=== PATIENT | female | born 2000 | race Two or more races ===

== ENCOUNTER 2018-07-19 13:36 | Day surgery (SDC) | payer OTHER ==
[~2018-07-19] VITALS: Ht 157.5 cm; Wt 52.2 kg
[2018-07-19] VITALS (8 sets, daily range): BP systolic 107–127; BP diastolic 47–65
--- NOTE | 2018-07-19 10:00 | Pre-Procedure Note/Attestation ---
Pre-Procedure Note/Attestation Complete Prior to Procedure Planned Procedure: right Procedure Narrative: wrist orif Indications for Procedure Pre-Operative Diagnosis: right wrist fracture Attestation I attest that I discussed the nature of the procedure; its benefits; risks and complications; and alternatives (and the risks and benefits of such alternatives ), prior to the procedure, with the patient (or the patient's legal floor representative). I attest that, if there was a reasonable possibility of needing a blood transfusion, the patient (or the patient's legal floor representative) was given the [facility] standardized written summary, pursuant to the Alexi Mayito Blood Safety Act ([place] Health and Safety Code # 1645, as amended). I attest that I re-evaluated the patient just prior to the surgery and that there has been no change in the patient's H&P, except as documented below: Jian Fulton MD Jul 19, 2018 10:00
--- NOTE | 2018-07-19 10:00 | Operative Note - PDOC ---
Operative Note Operative Note Pre-op Diagnosis: right wrist fracture Procedure: see op report Post-op Diagnosis: same as pre-op plus Operative Findings: consistent w/pre-op dx studies Anesthesia: regional Specimen: none Complications: none Condition: stable Estimated Blood Loss: none Implant(s) used?: Yes Jian Fulton MD Jul 19, 2018 10:00
[~2018-07-19 13:36] MED LIST: D5 1/2NS 1,000 ML IV SCH; HYDROmorphone 1mg/ml Carpuject SUBQ PRN; Norco 5mg/325mg tab ORAL PRN; Tylenol #3 tab (300mg/30mg) ORAL PRN; ceFAZolin sod 1 GM in NS 55 ML IVPB ONE; celeBREX 200mg Cap **SURGERY PATIENTS ONLY ORAL ONE; oxyCONTIN 20mg tab ORAL ONE
[2018-07-19] MEDS ORDERED: Bacitracin 50000 Units Vial ONE ×2 (14:43→17:16)
[2018-07-19] MEDS ORDERED: Bacitracin Oint 15gm Tube TOPIC ONE (14:43)
[2018-07-19] MEDS ORDERED: celeBREX 200mg Cap **SURGERY PATIENTS ONLY ORAL ONE (14:47)
[2018-07-19] MEDS ORDERED: oxyCONTIN 20mg tab ORAL ONE (14:47)
[2018-07-19] MEDS ORDERED: Bupivacaine w/Epi 0.25% 30ml Vial INJ ONE ×2 (15:19→16:04)
[2018-07-19] MEDS ORDERED: fentaNYL 100 mcg/2 mL IV ONE ×2 (15:28→16:18)
[2018-07-19] MEDS ORDERED: Midazolam 2mg/2ml Inj ONE (15:28)
[2018-07-19] MEDS ORDERED: Acetaminophen (Non formulary) 100 ML IV ONE (16:00)
[2018-07-19] MEDS ORDERED: NS Irrig 1000ml IRRIG ONE (16:00)
[2018-07-19] MEDS ORDERED: Lidocaine 1% MPF 10mg/ml 5ml ONE (16:05)
[2018-07-19] MEDS ORDERED: Propofol 200mg/20ml IV ONE (16:05)
[2018-07-19] MEDS ORDERED: Ropivacaine 5mg/ml Vial 30ml INJ ONE (16:05)
[2018-07-19] MEDS ORDERED: Metoclopramide 10mg/2ml Inj ONE (16:05)
--- NOTE | 2018-07-19 17:09 | Immediate Post-Op Evaluation ---
Immediate Post-Op Evalulation Immediate Post-Op Evalulation Procedure: right wrist orif Date of Evaluation: Jul 19, 2018 Time of Evaluation: 17:10 IV Fluids: 800 Blood Pressure Systolic: 116 Blood Pressure Diastolic: 53 Pulse Rate: 82 Respiratory Rate: 14 O2 Sat by Pulse Oximetry: 100 Temperature (Fahrenheit): 98.5 Nausea: No Vomiting: No Complications none Patient Status: awake, reacts, patent Hydration Status: adequate Drug: ancef Given Within 1 Hr of Incision: Yes Time Given: 16:00 Gillian Lockwood CRNA Jul 19, 2018 17:09
--- NOTE | 2018-07-19 17:11 | Anethesia Preoperative Eval ---
Anesthesia Pre-op PMH/ROS General Date of Evaluation: Jul 19, 2018 Time of Evaluation: 15:20 Anesthesiologist: heidi ASA Score: ASA 1 Mallampati Score Class I : Soft palate, uvula, fauces, pillars visible Class II: Soft palate, uvula, fauces visible Class III: Soft palate, base of uvula visible Class IV: Only hard plate visible Mallampati Classification: Class II Surgeon: hiral Diagnosis: fx wrist Surgical Procedure: ORIF wrist Anesthesia History: none Family History: no anesthesia problems Allergies: Coded Allergies: No Known Allergies (Unverified , 07/18/18) Medications: see eMAR Patient NPO?: Yes NPO Date: Jul 18, 2018 NPO Time: 23:59 Past Medical History Cardiovascular: Denies: HTN, CAD, VA, valve dz, arrhythmia, other Pulmonary: Denies: asthma, COPD, MAIRA, other Gastrointestinal/Genitourinary: Denies: GERD, CRI, ESRD, other Neurologic/Psychiatric: Denies: dementia, CVA, depression/anxiety, TIA, other Endocrine: Denies: DM, hypothyroidism, steroids, other HEENT: Denies: cataract (L), cataract (R), glaucoma, COMANCHE (L), COMANCHE (R), other Hematology/Immune: Denies: anemia, DVT, bleeding disorder, other Musculoskeletal/Integumentary: Denies: OA, RA, DJD, DDD, edema, other PSxH Narrative: none Anesthesia Pre-op Phys. Exam Physician Exam Last Vital Signs Date Time Temp Pulse Resp B/P (MAP) Pulse Ox O2 Delivery O2 Flow Rate FiO2 07/19/18 14:58 99.1 90 18 107/64 100 07/19/18 14:56 Room Air Constitutional: NAD Neurologic: CN 2-12 intact Cardiovascular: RRR Respiratory: CTA Gastrointestinal: S/NT/ND Airway Exam Mallampati Classification 2 Mallampati Score: Class II MO: full Neck: normal TMD: 3fb ROM: full Anesthesia Pre-op A/P Labs Urine Test Test 07/19/18 14:30 Urine HCG, Qualitative Negative (NEGATIVE) Studies Pre-op Studies: EKG - sr Risk Assessment & Plan Plan: general + block Status Change Before Surgery: No Pre-Antibiotics Drug: ancef Given Within 1 Hr of Incision: Yes Time Given: 16:00 Gillian Lockwood CRNA Jul 19, 2018 17:11
[2018-07-19] MEDS ORDERED: Metoclopramide 10mg/2ml Inj IVP PRN (17:15)
[2018-07-19] MEDS ORDERED: fentaNYL 100 mcg/2 mL IV PRN (17:15)
--- NOTE | 2018-07-20 01:30 | Operative Note - Dictated ---
DATE OF OPERATION: 07/19/2018 PREOPERATIVE DIAGNOSIS: Right displaced distal radius fracture. POSTOPERATIVE DIAGNOSIS: Right displaced distal radius fracture. PROCEDURE: Open reduction and internal fixation of right distal radius fracture. SURGEON: Jonathan Fulton M.D. ANESTHESIA: General. INDICATION FOR PROCEDURE: The patient is a pleasant female who has displaced distal radius fracture indicative for operative fixation. Risks, limitations, expectations, and complications of the procedure were discussed in detail including continued pain, need for future surgery, risk of anesthesia, medical complications, DVT, PE, and mortality risks. All questions were addressed. DESCRIPTION OF PROCEDURE: After informed consent was obtained, the patient was brought to the operating room. The patient was placed under interscalene general anesthesia. Tourniquet was applied to the right proximal thigh. Right arm was prepped and draped in a sterile manner. A standard anterior Vladimir volar approach to the distal wrist was performed. Open reduction of the fracture was performed. The narrowest and shortest splint were selected. Cortical screws were then placed. It seemed like reduction plate fixation was in good position. It was somewhat distal on the lateral view. However, given the nature of the fracture site of the bone, position was optimized. At this point, the skin was closed using 2-0 Vicryl suture and 3-0 Monocryl suture. Posterior splint was applied. The patient was awoken and taken to recovery room with stable vital signs. ESTIMATED BLOOD LOSS: None. COMPLICATIONS: None. SPECIMENS: None. IMPLANTS: Biomet Jian Fulton M.D. DR: RYLEE JOB#: [id number] CC: UYEN
--- NOTE | 2018-07-22 15:24 | Diagnostic Imaging Report ---
INDICATION: Pain, intraoperative TECHNIQUE: Intraoperative imaging Fluoroscopy time: 10.6 seconds Total dose: 0.15 mGy Total number of images: 2 COMPARISON: None FINDINGS: Intraoperative images document surgical repair with sideplate and screws of a distal radial fracture IMPRESSION: Intraoperative imaging, as described
[2018-07-23 07:32] VITALS: BP 115/70
--- NOTE | 2018-07-23 07:32 | 48 Hour Post Anesthesia Eval ---
Post Anesthesia Evaluation Procedure: right wrist orif Date of Evaluation: Jul 23, 2018 Time of Evaluation: 07:32 Blood Pressure Systolic: 115 0: 70 Pulse Rate: 74 Respiratory Rate: 14 O2 Sat by Pulse Oximetry: 100 Airway: patent Nausea: No Vomiting: No Pain Intensity: 0 Hydration Status: adequate Cardiopulmonary Status: stable Mental Status/LOC: patient returned to baseline Post-Anesthesia Complications: none Follow-up care needed: N/A Gillian Lockwood CRNA Jul 23, 2018 07:32
== END 2018-07-19 18:30 | disposition home or self-care (01) ==
LOC: SUR 13:36
DX: S52.501A Unspecified fracture of the lower end of right radius, initial encounter for closed fracture (principal); X58.XXXA Exposure to other specified factors, initial encounter
CPT/HCPCS: 76001; 81025; 94003; 94150; J2250; J2405; J2765